=== PATIENT | male | born 1985 | race Caucasian/White ===

== ENCOUNTER 2017-04-14 19:57 | Emergency (ER) | payer SELFPAY ==
--- NOTE | 2017-04-14 21:04 | DIAGNOSTIC IMAGING REPORT ---
PROCEDURE: XR CHEST 2 VIEW INDICATION: SHORTNESS OF BREATH TECHNIQUE: PA and lateral views. COMPARISON: None. FINDINGS: Lungs are clear. Heart and mediastinum are normal. Thorax is normal. IMPRESSION: 1. Negative chest.
--- NOTE | 2017-04-14 22:02 | ED CLINICAL REPORT ---
Clinical Report - Physicians/Mid Levels [facility] [address] [place] [address] 04/14/2017 19:59 Patient: ADIS AREVALO Time Seen: 20:50. Arrived- By private vehicle. Historian- patient. HISTORY OF PRESENT ILLNESS Location of injuries- lower back. Chief Complaint: Injury to BACK. The injury occurred yesterday. (The patient unloaded a truck lifting multiple large boxes and kegs weighing up to 50 pounds each). ( He has pain that starts in his "tailbone " and that radiates up his back and down his L leg. He says that the pain becomes severe enough that it takes his "breath away." He denies any numbness or weakness of his legs. He denies incontinence for stool or urine.). Occurred at work. The patient complains of severe pain. REVIEW OF SYSTEMS No chills, fever, sweats, calf pain or chest pain. No cough, pedal edema, palpitations, abdominal pain or constipation. No diarrhea, nausea, vomiting or urinary problems. All systems otherwise negative, except as recorded above. PAST HISTORY Medications: None. Allergies: None. SOCIAL HISTORY Light tobacco smoker (cigarette)- less than 1/2 a pack per day. Occasional alcohol use. FAMILY HISTORY His father has severe degenerative disc disease. ADDITIONAL NOTES The nursing notes have been reviewed. PHYSICAL EXAM Vital Signs: 04/14/2017 20:38 BP: 118/83. HR: 52. RR: 18. O2 saturation: 100%. Temp: 98.8 F. Pain level now: 08/10. Have been reviewed. Appearance: Alert. Appears to be in pain. Eyes: Pupils equal, round and reactive to light. ENT: No dental injury. Pharynx normal. Neck: Painless ROM. CVS: Heart sounds normal. Respiratory: Breath sounds normal. Abdomen: No visible injury. Back: Moderate muscle spasm in the lumbar spine region. Severely limited ROM in the back- in the lumbar spine: decreased flexion, extension, right lateral bending, left lateral bending and rotation to the right and left. Skin: Skin warm and dry. Normal skin color. Normal skin turgor. Extremities: Normal inspection. Pelvis stable. Extremities atraumatic. LABS, X-RAYS, AND EKG X-Rays: T-Spine series negative. Chest X-ray negative. The X-rays were independently viewed by me. LS-Spine X-rays: (L5 - S1 disc space narrowing). The X-rays were independently viewed by me. PROGRESS AND PROCEDURES Course of Care: Patient is stable. Patient/family counseled. Old medical records ordered. Old records unavailable. Disposition: Discharged. Condition: stable. CLINICAL IMPRESSION Lumbar back pain associated with degenerative joint disease of the lumbar spine. INSTRUCTIONS Apply ice for 20 minutes followed by heat four times a day until better. Don't apply ice directly to skin and don't use while asleep. No driving or operating machinery while taking medication. Sedative medication was given during your visit. No bending or stooping or lifting greater than 5 lbs until released. No sports until well. Do not work for four days. (do not take both hydrocodone with acetaminophen and Flexeril at the same time as discussed. Wait at least 8 hours after the last dose of either before taking another of either of them.). Warnings: COMPLICATIONS: Complications from this condition include: injury to a nerve. Future problems may include loss of function and pain. GENERAL WARNINGS: Return or contact your physician immediately if your condition worsens or changes unexpectedly, if not improving as expected, or if other problems arise. Prescription Medications: Hydrocodone/APAP 5mg/325mg: take 1 to 2 orally every 6 hours as needed for pain. Dispense fifteen (15). No refills. Ibuprofen 600mg tablets: take 1 tablet orally every 8 hours as needed for pain. Dispense thirty (30). No refills. Flexeril 10 mg: Take 1 orally every 8 hours as needed for muscle spasm. Dispense twenty (20). No refills. Substitution is permissible. Understanding of the discharge instructions verbalized by patient. Follow-up with: [facility], , , [address], [facility], [address] Follow up in four days if not better. (Electronically signed by Sincere Manning MD 04/15/2017 10:10)
--- NOTE | 2017-04-14 22:02 | ED CLINICAL REPORT ---
Clinical Report - Physicians/Mid Levels [facility] [address] [place] [address] 04/14/2017 19:59 Patient: ADIS AREVALO Time Seen: 20:50. Arrived- By private vehicle. Historian- patient. HISTORY OF PRESENT ILLNESS Location of injuries- lower back. Chief Complaint: Injury to BACK. The injury occurred yesterday. (The patient unloaded a truck lifting multiple large boxes and kegs weighing up to 50 pounds each). ( He has pain that starts in his "tailbone " and that radiates up his back and down his L leg. He says that the pain becomes severe enough that it takes his "breath away." He denies any numbness or weakness of his legs. He denies incontinence for stool or urine.). Occurred at work. The patient complains of severe pain. REVIEW OF SYSTEMS No chills, fever, sweats, calf pain or chest pain. No cough, pedal edema, palpitations, abdominal pain or constipation. No diarrhea, nausea, vomiting or urinary problems. All systems otherwise negative, except as recorded above. PAST HISTORY Medications: None. Allergies: None. SOCIAL HISTORY Light tobacco smoker (cigarette)- less than 1/2 a pack per day. Occasional alcohol use. FAMILY HISTORY His father has severe degenerative disc disease. ADDITIONAL NOTES The nursing notes have been reviewed. PHYSICAL EXAM Vital Signs: 04/14/2017 20:38 BP: 118/83. HR: 52. RR: 18. O2 saturation: 100%. Temp: 98.8 F. Pain level now: 08/10. Have been reviewed. Appearance: Alert. Appears to be in pain. Eyes: Pupils equal, round and reactive to light. ENT: No dental injury. Pharynx normal. Neck: Painless ROM. CVS: Heart sounds normal. Respiratory: Breath sounds normal. Abdomen: No visible injury. Back: Moderate muscle spasm in the lumbar spine region. Severely limited ROM in the back- in the lumbar spine: decreased flexion, extension, right lateral bending, left lateral bending and rotation to the right and left. Skin: Skin warm and dry. Normal skin color. Normal skin turgor. Extremities: Normal inspection. Pelvis stable. Extremities atraumatic. LABS, X-RAYS, AND EKG X-Rays: T-Spine series negative. Chest X-ray negative. The X-rays were independently viewed by me. LS-Spine X-rays: (L5 - S1 disc space narrowing). The X-rays were independently viewed by me. PROGRESS AND PROCEDURES Course of Care: Patient is stable. Patient/family counseled. Old medical records ordered. Old records unavailable. Disposition: Discharged. Condition: stable. CLINICAL IMPRESSION Lumbar back pain associated with degenerative joint disease of the lumbar spine. INSTRUCTIONS Apply ice for 20 minutes followed by heat four times a day until better. Don't apply ice directly to skin and don't use while asleep. No driving or operating machinery while taking medication. Sedative medication was given during your visit. No bending or stooping or lifting greater than 5 lbs until released. No sports until well. Do not work for four days. (do not take both hydrocodone with acetaminophen and Flexeril at the same time as discussed. Wait at least 8 hours after the last dose of either before taking another of either of them.). Warnings: COMPLICATIONS: Complications from this condition include: injury to a nerve. Future problems may include loss of function and pain. GENERAL WARNINGS: Return or contact your physician immediately if your condition worsens or changes unexpectedly, if not improving as expected, or if other problems arise. Prescription Medications: Hydrocodone/APAP 5mg/325mg: take 1 to 2 orally every 6 hours as needed for pain. Dispense fifteen (15). No refills. Ibuprofen 600mg tablets: take 1 tablet orally every 8 hours as needed for pain. Dispense thirty (30). No refills. Flexeril 10 mg: Take 1 orally every 8 hours as needed for muscle spasm. Dispense twenty (20). No refills. Substitution is permissible. Understanding of the discharge instructions verbalized by patient. Follow-up with: [facility], , , [address], [facility], [address] Follow up in four days if not better. (Electronically signed by Sincere Manning MD 04/15/2017 10:10)
--- NOTE | 2017-04-14 22:02 | ED ORDER SUMMARY ---
..... Patient: ADIS AREVALO OrderSheet [facility] VisitID: [id number] [place] [address] 32y, M Registration Date/Time: 04/14/2017 ORDER SHEET Weight: 99.7 kg (stated) Allergies: None GENERAL ORDERS: Chest 2V Urgent (20:50 04/14/2017 Ashish SEGURA) (Ack 20:52 CHagerty ER Cyber Security Architect) (21:19 MCampbell) Thoracic Spine 3V Urgent (20:51 04/14/2017 Ashish SEGURA) (Ack 20:52 Venessa ER Cyber Security Architect) (21:19 MCampbell) Lumbar Spine 2 or 3V Urgent (20:51 04/14/2017 Ashish SEGURA) (Ack 20:52 Venessa ER Cyber Security Architect) (21:19 MCampbell) Sacrum and Coccyx Urgent (21:32 04/14/2017 Ashish SEGURA) (Ack 21:45 CHagchanel ER Cyber Security Architect) (21:46 Ashish SEGURA) (Cancelled: Other21:46 Ashish SEGURA) MEDICATION ORDERS: Hydrocodone-APAP PO 7.5/325 mg (NOW, HIGH ALERT MEDICATION) (22:01 04/14/2017 Ashish SEGURA) (Ack 22:09 RCollier R.N.) (22:22 Justyn R.N.) IV FLUIDS: ORDER SHEET NOTES: [Electronically signed by Darlene Ruvalcaba R.N. (23:11 04/14/2017)] [Electronically signed by Sincere Manning MD (10:10 04/15/2017)] [Electronically locked/signed by Darlene Ruvalcaba R.N. (23:11 04/14/2017)]
--- NOTE | 2017-04-14 22:02 | ED ORDER SUMMARY ---
..... Patient: ADIS AREVALO OrderSheet [facility] VisitID: [id number] [place] [address] 32y, M Registration Date/Time: 04/14/2017 ORDER SHEET Weight: 99.7 kg (stated) Allergies: None GENERAL ORDERS: Chest 2V Urgent (20:50 04/14/2017 Ashish SEGURA) (Ack 20:52 CHagerty ER Financial Compliance Examiner) (21:19 MCampbell) Thoracic Spine 3V Urgent (20:51 04/14/2017 Ashish SEGURA) (Ack 20:52 Venessa ER Financial Compliance Examiner) (21:19 MCampbell) Lumbar Spine 2 or 3V Urgent (20:51 04/14/2017 Ashish SEGURA) (Ack 20:52 Venessa ER Financial Compliance Examiner) (21:19 MCampbell) Sacrum and Coccyx Urgent (21:32 04/14/2017 Ashish SEGURA) (Ack 21:45 CHagchanel ER Financial Compliance Examiner) (21:46 Ashish SEGURA) (Cancelled: Other21:46 Ashish SEGURA) MEDICATION ORDERS: Hydrocodone-APAP PO 7.5/325 mg (NOW, HIGH ALERT MEDICATION) (22:01 04/14/2017 Ashish SEGURA) (Ack 22:09 RCollier R.N.) (22:22 Justyn R.N.) IV FLUIDS: ORDER SHEET NOTES: [Electronically signed by Darlene Ruvalcaba R.N. (23:11 04/14/2017)] [Electronically signed by Sincere Manning MD (10:10 04/15/2017)] [Electronically locked/signed by Darlene Ruvalcaba R.N. (23:11 04/14/2017)]
--- NOTE | 2017-04-14 22:02 | ED NURSING NOTES ---
Clinical Report - Nurses [facility] [address] [place] [address] 04/14/2017 19:59 Patient: ADIS AREVALO TRIAGE Triage time 20:39. Acuity: LEVEL 4. Chief Complaint: SHORTNESS OF BREATH and DIFFICULTY BREATHING. 20:39 04/14/17. 20:39 04/14/17. Alert. ( Pt loaded a truck yesterday, pt states he possibly injured his back with pain radiating up his back to his lungs,). --20:42 Raúl Valdez R.N. 20:38 04/14/17. BP: 118/83. HR: 52. RR: 18. O2 saturation: 100% on room air. Temp: 98.8 F (oral). Pain level now: 08/10. --20:42 Raúl Valdez R.N. Weight: 99.7 kg stated. Height/Length: 81 inches Per Patient. BMI: 23.6. --20:39 Raúl Valdez R.N. Medications None. --20:40 Raúl Valdez R.N. Medication/allergy information source: the patient. --20:42 Raúl Valdez R.N. Allergies None. --20:40 Raúl Valdez R.N. History Arrived by private vehicle. Historian: patient. Accompanied by family. Primary physician (NONE). 20:39 04/14/17. This started yesterday. Treatment WIRE DROPPER: None. PAST MEDICAL HX: Immunizations: up-to-date. SOCIAL HX: Current every day light tobacco smoker (cigarette)- less than 1/2 a pack per day. Occasional alcohol use. No drug use. No infectious disease exposure. ABUSE ASSESSMENT: No report of abuse. FALL RISK ASSESSMENT: Fall risk assessment completed. No fall risk identified. NUTRITIONAL RISK ASSESSMENT: The nutritional risk assessment revealed no deficiencies. FUNCTIONAL ASSESSMENT: Functional assessment: no impairments noted. LEARNING NEEDS ASSESSMENT: The learning needs assessment revealed no barriers. SKIN INTEGRITY ASSESSMENT: Skin integrity risk assessment completed. No skin integrity risk identified. --20:42 Raúl Valdez R.N. Assessment 20:39 04/14/17. --20:42 Raúl Valdez R.N. Interventions 20:39 04/14/17. 20:39 04/14/17. ID and allergy band on patient. To treatment room. --20:42 Raúl Valdez R.N. PHYSICAL ASSESSMENT 20:42 04/14/17. Ambulatory to room. GENERAL / NEURO / PSYCH: Alert. Oriented X 4. Appears in pain. RESPIRATORY: No respiratory distress. CVS: Capillary refill less than 2 seconds. SKIN: Skin is warm and dry. --20:42 Raúl Valdez R.N. NURSING PROGRESS NOTES 20:43 04/14/17. The plan of care for this patient has been created. Patient gowned. Head of bed elevated. Reassurance given. Two patient identifiers checked. Call light placed in reach. Side rails up x 2. Bed placed in lowest position. Brakes of bed on. --20:43 Raúl Valdez R.N. 20:43 04/14/17. Patient ready for evaluation- chart flagged and notification provided. --20:43 Raúl Valdez R.N. 21:31 04/14/17. Care transferred and report given. --21:31 Raúl Valdez R.N. Care transferred and report received. --21:34 Darlene Ruvalcaba R.N. ( pt calm, resting quietly. Waiting for xrays to be done. Jeans removed, warm blanket provided.). --21:37 Darlene Ruvalcaba R.N. 22:18 04/14/2017 Hydrocodone-APAP (Hydrocodone-Acetaminophen) PO 5/325 mg Tablets 2 tab given. Allergies verified, confirmed 5 rights and sedative warning given to the patient. (10mg given per verbal from MD). --22:22 Darlene Ruvalcaba R.N. DISPOSITION / DISCHARGE 22:21. Condition at departure: stable. No learning barriers present. Discharge instructions provided and reviewed with the patient. Reviewed medication(s) side effects, precautions, dosing and course information. Prescription(s) given to the patient. Patient verbalized understanding. Written instructions provided in Croatian. The patient was discharged home and accompanied by spouse. He left the Emergency Department ambulatory and via private vehicle. Spouse driving. --23:11 Darlene Ruvalcaba R.N. 22:20 04/14/17. BP: 122/73. HR: 56. RR: 15. O2 saturation: 100% on room air. Temp: deferred. Landin-Zamora pain scale: 4/10. --23:11 Darlene Ruvalcaba R.N. Locked/Released at 04/14/2017 23:11 by Darlene Ruvalcaba R.N.
--- NOTE | 2017-04-14 22:02 | ED NURSING NOTES ---
Clinical Report - Nurses [facility] [address] [place] [address] 04/14/2017 19:59 Patient: ADIS AREVALO TRIAGE Triage time 20:39. Acuity: LEVEL 4. Chief Complaint: SHORTNESS OF BREATH and DIFFICULTY BREATHING. 20:39 04/14/17. 20:39 04/14/17. Alert. ( Pt loaded a truck yesterday, pt states he possibly injured his back with pain radiating up his back to his lungs,). --20:42 Raúl Valdez R.N. 20:38 04/14/17. BP: 118/83. HR: 52. RR: 18. O2 saturation: 100% on room air. Temp: 98.8 F (oral). Pain level now: 08/10. --20:42 Raúl Valdez R.N. Weight: 99.7 kg stated. Height/Length: 81 inches Per Patient. BMI: 23.6. --20:39 Raúl Valdez R.N. Medications None. --20:40 Raúl Valdez R.N. Medication/allergy information source: the patient. --20:42 Raúl Valdez R.N. Allergies None. --20:40 Raúl Valdez R.N. History Arrived by private vehicle. Historian: patient. Accompanied by family. Primary physician (NONE). 20:39 04/14/17. This started yesterday. Treatment SWITCH INSPECTOR: None. PAST MEDICAL HX: Immunizations: up-to-date. SOCIAL HX: Current every day light tobacco smoker (cigarette)- less than 1/2 a pack per day. Occasional alcohol use. No drug use. No infectious disease exposure. ABUSE ASSESSMENT: No report of abuse. FALL RISK ASSESSMENT: Fall risk assessment completed. No fall risk identified. NUTRITIONAL RISK ASSESSMENT: The nutritional risk assessment revealed no deficiencies. FUNCTIONAL ASSESSMENT: Functional assessment: no impairments noted. LEARNING NEEDS ASSESSMENT: The learning needs assessment revealed no barriers. SKIN INTEGRITY ASSESSMENT: Skin integrity risk assessment completed. No skin integrity risk identified. --20:42 Raúl Valdez R.N. Assessment 20:39 04/14/17. --20:42 Raúl Valdez R.N. Interventions 20:39 04/14/17. 20:39 04/14/17. ID and allergy band on patient. To treatment room. --20:42 Raúl Valdez R.N. PHYSICAL ASSESSMENT 20:42 04/14/17. Ambulatory to room. GENERAL / NEURO / PSYCH: Alert. Oriented X 4. Appears in pain. RESPIRATORY: No respiratory distress. CVS: Capillary refill less than 2 seconds. SKIN: Skin is warm and dry. --20:42 Raúl Valdez R.N. NURSING PROGRESS NOTES 20:43 04/14/17. The plan of care for this patient has been created. Patient gowned. Head of bed elevated. Reassurance given. Two patient identifiers checked. Call light placed in reach. Side rails up x 2. Bed placed in lowest position. Brakes of bed on. --20:43 Raúl Valdez R.N. 20:43 04/14/17. Patient ready for evaluation- chart flagged and notification provided. --20:43 Raúl Valdez R.N. 21:31 04/14/17. Care transferred and report given. --21:31 Raúl Valdez R.N. Care transferred and report received. --21:34 Darlene Ruvalcaba R.N. ( pt calm, resting quietly. Waiting for xrays to be done. Jeans removed, warm blanket provided.). --21:37 Darlene Ruvalcaba R.N. 22:18 04/14/2017 Hydrocodone-APAP (Hydrocodone-Acetaminophen) PO 5/325 mg Tablets 2 tab given. Allergies verified, confirmed 5 rights and sedative warning given to the patient. (10mg given per verbal from MD). --22:22 Darlene Ruvalcaba R.N. DISPOSITION / DISCHARGE 22:21. Condition at departure: stable. No learning barriers present. Discharge instructions provided and reviewed with the patient. Reviewed medication(s) side effects, precautions, dosing and course information. Prescription(s) given to the patient. Patient verbalized understanding. Written instructions provided in Albanian. The patient was discharged home and accompanied by spouse. He left the Emergency Department ambulatory and via private vehicle. Spouse driving. --23:11 Darlene Ruvalcaba R.N. 22:20 04/14/17. BP: 122/73. HR: 56. RR: 15. O2 saturation: 100% on room air. Temp: deferred. Landin-Zamora pain scale: 4/10. --23:11 Darlene Ruvalcaba R.N. Locked/Released at 04/14/2017 23:11 by Darlene Ruvalcaba R.N.
--- NOTE | 2017-04-14 22:49 | DIAGNOSTIC IMAGING REPORT ---
PROCEDURE: XR LUMBAR SPINE 2 OR 3 VIEWS INDICATION: LOWER BACK PAIN TECHNIQUE: Three views. COMPARISON: None. FINDINGS: Osseous structures and disc spaces are normal. No evidence of an acute process or fracture. IMPRESSION: 1. Negative lumbar spine.
--- NOTE | 2017-04-14 22:50 | DIAGNOSTIC IMAGING REPORT ---
PROCEDURE: XR THORACIC SPINE 3 VIEWS INDICATION: MID BACK PAIN TECHNIQUE: Three views. COMPARISON: None. FINDINGS: Osseous structures and disc spaces are normal. No evidence of an acute process or fracture. IMPRESSION: 1. Negative thoracic spine.
--- NOTE | 2017-04-15 10:10 | ED MED RECONCILIATION SUMMARY ---
Patient: ADIS AREVALO Medication Reconciliation Report [facility] VisitID: [id number] [address] [place] [address] 32y, M Registration Date/Time: 04/14/2017 Weight: 99.7 kg Height/Length: 81 in. BMI: 23.6 ALLERGIES: None The patient's Home Medications are listed below: NONE. The source(s) of the original Home Medication information: patient The following Medications were given to the patient in the Emergency Department: Hydrocodone-APAP [PO] PO 2 tab, administered: 04/14/2017 10:18:00 PM The following Medications were prescribed to the patient: Hydrocodone/APAP 5mg/325mg: take 1 to 2 orally every 6 hours as needed for pain. Dispense fifteen (15). No refills. -- Sincere Manning MD Ibuprofen 600mg tablets: take 1 tablet orally every 8 hours as needed for pain. Dispense thirty (30). No refills. -- Sincere Manning MD Flexeril 10 mg: Take 1 orally every 8 hours as needed for muscle spasm. Dispense twenty (20). No refills. Substitution is permissible. -- Sincere Manning MD
--- NOTE | 2017-04-15 10:10 | ED DISCHARGE INSTRUCTIONS ---
Patient: ADIS AREVALO General Instructions [facility] VisitID: [id number] [address] 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 INSTRUCTIONS Apply ice for 20 minutes followed by heat four times a day until better. Don't apply ice directly to skin and don't use while asleep. No driving or operating machinery while taking medication. Sedative medication was given during your visit. No bending or stooping or lifting greater than 5 lbs until released. No sports until well. Do not work for four days. (do not take both hydrocodone with acetaminophen and Flexeril at the same time as discussed. Wait at least 8 hours after the last dose of either before taking another of either of them.). Warnings: COMPLICATIONS: Complications from this condition include: injury to a nerve. Future problems may include loss of function and pain. GENERAL WARNINGS: Return or contact your physician immediately if your condition worsens or changes unexpectedly, if not improving as expected, or if other problems arise. Prescription Medications: Hydrocodone/APAP 5mg/325mg: take 1 to 2 orally every 6 hours as needed for pain. Dispense fifteen (15). No refills. Ibuprofen 600mg tablets: take 1 tablet orally every 8 hours as needed for pain. Dispense thirty (30). No refills. Flexeril 10 mg: Take 1 orally every 8 hours as needed for muscle spasm. Dispense twenty (20). No refills. Substitution is permissible. Understanding of the discharge instructions verbalized by patient. Follow-up with: [facility], , , [address], , [place], [id number] Follow up in four days if not better. ADDITIONAL INFORMATION Sciatica Sciatica ("Lumbar Radiculopathy") causes a pain that spreads from the lower back down into the buttock, hip and leg. Sometimes leg pain can occur without any back pain. Sciatica is due to irritation or pressure on a spinal nerve as it comes out of the spinal canal. This is most often due to a bulge or rupture of a nearby spinal disk (the cartilage cushion between each spinal bone), which presses on a nearby nerve. Other causes include spinal stenosis (narrowing of the spinal canal) and spasm of the pyriform muscle (a muscle in the buttocks that the sciatic nerve passes through). Sciatica may begin after a sudden twisting/bending force (such as in a car accident), or sometimes after a simple awkward movement. In either case, muscle spasm is commonly present and contributes to the pain. The diagnosis of sciatica is made from the symptoms and physical exam. Unless you had a physical injury (such as a car accident or fall), X-rays are usually not ordered for the initial evaluation of sciatica because the nerves and disks cannot be seen on an x-ray. If signs of a compressed nerve are present (for example, loss of tendon reflex or strength in the leg), an MRI (magnetic resonance imaging) scan will need to be scheduled as an outpatient. Most sciatica (80-90%) gets better with medicine, exercise, physical therapy. If symptoms continue after at least three months of medical treatment, surgery may be considered. Home Care: You may need to stay in bed the first few days. But, as soon as possible, begin sitting or walking to avoid problems with prolonged bed rest. When in bed, try to find a position of comfort. A firm mattress is best. Try lying flat on your back with pillows under your knees. You can also try lying on your side with your knees bent up towards your chest and a pillow between your knees. Avoid prolonged sitting. This puts more stress on the lower back than standing or walking. Some persons find relief with heat (hot shower, hot bath or heating pad) and massage, while others prefer cold packs (crushed or cubed ice in a plastic bag, wrapped in a towel). Try both and use the method that feels best for 20 minutes several times a day. You may use acetaminophen (Tylenol) or ibuprofen (Motrin, Advil) to control pain, unless another pain medicine was prescribed. [ NOTE: If you have chronic liver or kidney disease or ever had a stomach ulcer or GI bleeding, talk with your doctor before using these medicines.] Be aware of safe lifting methods and do not lift anything over 15 pounds until all the pain is gone. Follow Up with your doctor or this facility if your symptoms do not start to improve after one week. Physical therapy or further testing may be needed. [NOTE: If X-rays were taken, they will be reviewed by a radiologist. You will be notified of any new findings that may affect your care.] Get Prompt Medical Attention if any of the following occur: Pain becomes worse, not controlled by the prescribed medicine Weakness or numbness in one or both legs Numbness in the groin, genital area Loss of bowel or bladder control Degenerative Disk Disease Spinal disks are gel-filled cushions between the bones of the spine (vertebrae). The disks act like shock absorbers. Over time, the disks may break down. This disorder is called degenerative disk disease (DDD). DDD can affect the neck or back. It is one of the most common causes of low back pain. It is the leading cause of disability in people under age 45 in the [place]. The pain usually remains localized to the lower back or neck. Muscle spasm is often present and adds to the pain. Disk degeneration is a natural part of aging, although it does not cause pain in most persons. It may also occur as a result of repeated minor injuries due to daily activities, sports, or accidents. It may lead to osteoarthritis of the spine. Back pain related to disk disease may come and go or become chronic and last for months or years. If the disk bulges or ruptures (also called slipped disk or herniated disk), it can put pressure on a nearby spinal nerve and cause neck or back pain that spreads down one arm or leg. X-rays or MRI (magnetic resonance imaging) scan may aid in the diagnosis. For acute pain, treatment consists of anti-inflammatory drugs, muscle relaxants, rest, ice, or heat. Narcotic pain medicines may be needed for short-term treatment of sudden worsening of pain. Due to their addictive potential, narcotics are not advised for long-term pain management. Other types of medicines are preferred. Surgery is usually not used to treat this condition unless there is a complication (such as nerve root compression). Home Care: FOR NECK PAIN: Use a comfortable pillow that supports the head and keeps the spine in a neutral position. The head should not be tilted forward or backward. FOR BACK PAIN: Avoid prolonged sitting. This puts more stress on the lower back than standing or walking. Establishing a regular exercise program to strengthen the supporting muscles of the spine will make it easier to live with DDD. During the first2 days after a flare-up of your pain, apply anice pack to the painful area for 20 minutes every 2-4 hours. This will reduce swelling and pain.Heat (hot shower, hot bath, or heating pad) works well for muscle spasm. You can start with ice, then switch to heat after2 days. Some patients feel best alternating ice and heat treatments. Use the method that feelsbest to you. You may use acetaminophen (Tylenol) or ibuprofen (Motrin, Advil) to control pain, unless another pain medicine was prescribed. [NOTE: If you have chronic liver or kidney disease or ever had a stomach ulcer or GI bleeding, talk with your doctor before using these medicines.] Follow Up with your physician, or as directed by our staff. [NOTE: If x-rays, a CT scan or an MRI scan were taken, they will be reviewed by a radiologist. You will be notified of any new findings that may affect your care.] Return Promptly or contact your doctor if any of the following occur: Increasing back pain New weakness, numbness, or pain in one or both arms or legs Foot drop (foot drags when you walk) Loss of bowel or bladder control Numbness or tingling in the buttock or groin area Unexplained fever over 100.4F (38.0C) Hydrocodone Bitartrate, Acetaminophen Oral tablet What is this medicine? ACETAMINOPHEN; HYDROCODONE (a set a OREN loli fen; israel droe KOE done) is a pain reliever. It is used to treat mild to moderate pain. How should I use this medicine? Take this medicine by mouth. Swallow it with a full glass of water. Follow the directions on the prescription label. If the medicine upsets your stomach, take the medicine with food or milk. Do not take more than you are told to take. Talk to your meteorological observer regarding the use of this medicine in children. This medicine is not approved for use in children. What side effects may I notice from receiving this medicine? Side effects that you should report to your doctor or health direct care supervisor as soon as possible: allergic reactions like skin rash, itching or hives, swelling of the face, lips, or tongue breathing problems confusion feeling faint or lightheaded, falls stomach pain yellowing of the eyes or skin Side effects that usually do not require medical attention (report to your doctor or health direct care supervisor if they continue or are bothersome): nausea, vomiting stomach upset What may interact with this medicine? alcohol antihistamines isoniazid medicines for depression, anxiety, or psychotic disturbances medicines for sleep muscle relaxants naltrexone narcotic medicines (opiates) for pain phenobarbital ritonavir tramadol What if I miss a dose? If you miss a dose, take it as soon as you can. If it is almost time for your next dose, take only that dose. Do not take double or extra doses. Where should I keep my medicine? Keep out of the reach of children. This medicine can be abused. Keep your medicine in a safe place to protect it from theft. Do not share this medicine with anyone. Selling or giving away this medicine is dangerous and against the law. Store at room temperature between 15 and 30 degrees C (59 and 86 degrees F). Protect from light. Keep container tightly closed. Throw away any unused medicine after the expiration date. Discard unused medicine and used packaging carefully. Pets and children can be harmed if they find used or lost packages. What should I tell my health care provider before I take this medicine? They need to know if you have any of these conditions: brain tumor Crohn's disease, inflammatory bowel disease, or ulcerative colitis drink more than 3 alcohol-containing drinks per day drug abuse or addiction head injury heart or circulation problems kidney disease or problems going to the bathroom liver disease lung disease, asthma, or breathing problems an unusual or allergic reaction to acetaminophen, hydrocodone, other opioid analgesics, other medicines, foods, dyes, or preservatives or trying to get breast-feeding What should I watch for while using this medicine? Tell your doctor or health direct care supervisor if your pain does not go away, if it gets worse, or if you have new or a different type of pain. You may develop tolerance to the medicine. Tolerance means that you will need a higher dose of the medicine for pain relief. Tolerance is normal and is expected if you take the medicine for a long time. Do not suddenly stop taking your medicine because you may develop a severe reaction. Your body becomes used to the medicine. This does NOT mean you are addicted. Addiction is a behavior related to getting and using a drug for a non-medical reason. If you have pain, you have a medical reason to take pain medicine. Your doctor will tell you how much medicine to take. If your doctor wants you to stop the medicine, the dose will be slowly lowered over time to avoid any side effects. You may get drowsy or dizzy when you first start taking the medicine or change doses. Do not drive, use machinery, or do anything that may be dangerous until you know how the medicine affects you. Stand or sit up slowly. There are different types of narcotic medicines (opiates) for pain. If you take more than one type at the same time, you may have more side effects. Give your health care provider a list of all medicines you use. Your doctor will tell you how much medicine to take. Do not take more medicine than directed. Call emergency for help if you have problems breathing. The medicine will cause constipation. Try to have a bowel movement at least every 2 to 3 days. If you do not have a bowel movement for 3 days, call your doctor or health direct care supervisor. Too much acetaminophen can be very dangerous. Do not take Tylenol (acetaminophen) or medicines that contain acetaminophen with this medicine. Many non-prescription medicines contain acetaminophen. Always read the labels carefully. Ibuprofen Oral tablet What is this medicine? IBUPROFEN (eye BYOO proe fen) is a non-steroidal anti-inflammatory drug (NSAID). It is used for dental pain, fever, headaches or migraines, osteoarthritis, rheumatoid arthritis, or painful monthly periods. It can also relieve minor aches and pains caused by a cold, flu, or sore throat. How should I use this medicine? Take this medicine by mouth with a glass of water. Follow the directions on the prescription label. Take this medicine with food if your stomach gets upset. Try to not lie down for at least 10 minutes after you take the medicine. Take your medicine at regular intervals. Do not take your medicine more often than directed. A special MedGuide will be given to you by the pharmacist with each prescription and refill. Be sure to read this information carefully each time. Talk to your meteorological observer regarding the use of this medicine in children. Special care may be needed. What side effects may I notice from receiving this medicine? Side effects that you should report to your doctor or health direct care supervisor as soon as possible: allergic reactions like skin rash, itching or hives, swelling of the face, lips, or tongue black or bloody stools, blood in the urine or in vomit breathing problems changes in vision chest pain general ill feeling or flu-like symptoms nausea or vomiting redness, blistering, peeling or loosening of the skin, including inside the mouth slurred speech or weakness on one side of the body stomach pain unexplained weight gain or swelling unusually weak or tired yellowing of eyes or skin Side effects that usually do not require medical attention (report to your doctor or health direct care supervisor if they continue or are bothersome): constipation or diarrhea dizziness gas or heartburn stomach upset What may interact with this medicine? Do not take this medicine with any of the following medications: cidofovir ketorolac methotrexate pemetrexed This medicine may also interact with the following medications: alcohol aspirin diuretics lithium other drugs for inflammation like prednisone warfarin What if I miss a dose? If you miss a dose, take it as soon as you can. If it is almost time for your next dose, take only that dose. Do not take double or extra doses. Where should I keep my medicine? Keep out of the reach of children. Store at room temperature between 15 and 30 degrees C (59 and 86 degrees F). Keep container tightly closed. Throw away any unused medicine after the expiration date. What should I tell my health care provider before I take this medicine? They need to know if you have any of these conditions: asthma cigarette smoker drink more than 3 alcohol containing drinks a day heart disease or circulation problems such as heart failure or leg edema (fluid retention) high blood pressure kidney disease liver disease stomach bleeding or ulcers an unusual or allergic reaction to ibuprofen, aspirin, other NSAIDS, other medicines, foods, dyes, or preservatives or trying to get breast-feeding What should I watch for while using this medicine? Tell your doctor or healthcare professional if your symptoms do not start to get better or if they get worse. This medicine does not prevent heart attack or stroke. In fact, this medicine may increase the chance of a heart attack or stroke. The chance may increase with longer use of this medicine and in people who have heart disease. If you take aspirin to prevent heart attack or stroke, talk with your doctor or health direct care supervisor. Do not take other medicines that contain aspirin, ibuprofen, or naproxen with this medicine. Side effects such as stomach upset, nausea, or ulcers may be more likely to occur. Many medicines available without a prescription should not be taken with this medicine. This medicine can cause ulcers and bleeding in the stomach and intestines at any time during treatment. Ulcers and bleeding can happen without warning symptoms and can cause . To reduce your risk, do not smoke cigarettes or drink alcohol while you are taking this medicine. You may get drowsy or dizzy. Do not drive, use machinery, or do anything that needs mental alertness until you know how this medicine affects you. Do not stand or sit up quickly, especially if you are an older patient. This reduces the risk of dizzy or fainting spells. This medicine can cause you to bleed more easily. Try to avoid damage to your teeth and gums when you brush or floss your teeth. Cyclobenzaprine Hydrochloride Oral tablet What is this medicine? CYCLOBENZAPRINE (sonye ilene JOSUE sol de pazen) is a muscle relaxer. It is used to treat muscle pain, spasms, and stiffness. How should I use this medicine? Take this medicine by mouth with a glass of water. Follow the directions on the prescription label. If this medicine upsets your stomach, take it with food or milk. Take your medicine at regular intervals. Do not take it more often than directed. Talk to your meteorological observer regarding the use of this medicine in children. Special care may be needed. What side effects may I notice from receiving this medicine? Side effects that you should report to your doctor or health direct care supervisor as soon as possible: allergic reactions like skin rash, itching or hives, swelling of the face, lips, or tongue chest pain fast heartbeat hallucinations seizures vomiting Side effects that usually do not require medical attention (report to your doctor or health direct care supervisor if they continue or are bothersome): headache What may interact with this medicine? Do not take this medicine with any of the following medications: cisapride droperidol flecainide grepafloxacin halofantrine levomethadyl MAOIs like Carbex, Eldepryl, Marplan, Nardil, and Parnate nilotinib pimozide probucol sertindole This medicine may also interact with the following medications: abarelix alcohol contrast dyes dolasetron guanethidine medicines for cancer medicines for depression, anxiety, or psychotic disturbances medicines to treat an irregular heartbeat medicines used for sleep or numbness during surgery or procedure methadone octreotide ondansetron palonosetron phenothiazines like chlorpromazine, mesoridazine, prochlorperazine, thioridazine some medicines for infection like alfuzosin, chloroquine, clarithromycin, levofloxacin, mefloquine, pentamidine, troleandomycin tramadol vardenafil What if I miss a dose? If you miss a dose, take it as soon as you can. If it is almost time for your next dose, take only that dose. Do not take double or extra doses. Where should I keep my medicine? Keep out of the reach of children. Store at room temperature between 15 and 30 degrees C (59 and 86 degrees F). Keep container tightly closed. Throw away any unused medicine after the expiration date. What should I tell my health care provider before I take this medicine? They need to know if you have any of these conditions: heart disease, irregular heartbeat, or previous heart attack liver disease thyroid problem an unusual or allergic reaction to cyclobenzaprine, tricyclic antidepressants, lactose, other medicines, foods, dyes, or preservatives or trying to get breast-feeding What should I watch for while using this medicine? Check with your doctor or health direct care supervisor if your condition does not improve within 1 to 3 weeks. You may get drowsy or dizzy when you first start taking the medicine or change doses. Do not drive, use machinery, or do anything that may be dangerous until you know how the medicine affects you. Stand or sit up slowly. Your mouth may get dry. Drinking water, chewing sugarless gum, or sucking on hard candy may help. You have been given the following additional information: Back Pain W/ Sciatica Degenerative Disk Disease Hydrocodone Bitartrate, Acetaminophen Oral tablet Ibuprofen Oral tablet Cyclobenzaprine Hydrochloride Oral tablet No driving or operating machinery while taking medication. Sedative medication was given during your visit. No bending or stooping or lifting greater than 5 lbs until released. No sports until well. Do not work for four days. (Electronically signed by Sincere Manning MD 04/15/2017 10:10)
--- NOTE | 2017-04-15 10:10 | ED MAR SUMMARY ---
..... Medication Administration Record [facility] [address] [place] [place] [address] Patient: ADIS AREVALO Visit ID: [id number] 32y, M Weight: 99.7 kg Height/Length: 81 in BMI: 23.6 ALLERGIES: None Given 22:18 04/14/2017 Darlene Ruvalcaba R.N. Medication Administered: HYDROCODONE-APAP [PO] (HYDROCODONE-ACETAMINOPHEN), Dose: 2 tab 5/325 mg Tablets PO. Medication Ordered: Hydrocodone-APAP PO 7.5/325 mg (NOW, HIGH ALERT MEDICATION).
--- NOTE | 2017-04-15 10:10 | ED MED RECONCILIATION SUMMARY ---
Patient: ADIS AREVALO Medication Reconciliation Report [facility] VisitID: [id number] [address] [place] [address] 32y, M Registration Date/Time: 04/14/2017 Weight: 99.7 kg Height/Length: 81 in. BMI: 23.6 ALLERGIES: None The patient's Home Medications are listed below: NONE. The source(s) of the original Home Medication information: patient The following Medications were given to the patient in the Emergency Department: Hydrocodone-APAP [PO] PO 2 tab, administered: 04/14/2017 10:18:00 PM The following Medications were prescribed to the patient: Hydrocodone/APAP 5mg/325mg: take 1 to 2 orally every 6 hours as needed for pain. Dispense fifteen (15). No refills. -- Sincere Manning MD Ibuprofen 600mg tablets: take 1 tablet orally every 8 hours as needed for pain. Dispense thirty (30). No refills. -- Sincere Manning MD Flexeril 10 mg: Take 1 orally every 8 hours as needed for muscle spasm. Dispense twenty (20). No refills. Substitution is permissible. -- Sincere Manning MD
--- NOTE | 2017-04-15 10:10 | ED MAR SUMMARY ---
..... Medication Administration Record [facility] [address] [place] [address] Patient: ADIS AREVALO Visit ID: [id number] 32y, M Weight: 99.7 kg Height/Length: 81 in BMI: 23.6 ALLERGIES: None Given 22:18 04/14/2017 Darlene Ruvalcaba R.N. Medication Administered: HYDROCODONE-APAP [PO] (HYDROCODONE-ACETAMINOPHEN), Dose: 2 tab 5/325 mg Tablets PO. Medication Ordered: Hydrocodone-APAP PO 7.5/325 mg (NOW, HIGH ALERT MEDICATION).
== END 2017-04-14 22:21 | disposition home or self-care (01) ==
LOC: ED SRH 19:57
DX: M47.896 Other spondylosis, lumbar region (principal); M54.5 Low back pain; X50.0XXA Overexertion from strenuous movement or load, initial encounter; Y93.89 Activity, other specified; Y92.89 Other specified places as the place of occurrence of the external cause; Y99.0 Civilian activity done for income or pay; F17.210 Nicotine dependence, cigarettes, uncomplicated

== ENCOUNTER 2017-05-17 17:37 | Outpatient (CLI) | payer OTHER ==
--- NOTE | 2017-05-17 18:57 | DIAGNOSTIC IMAGING REPORT ---
PROCEDURE: XR HAND 3 OR 4 VIEWS - RIGHT INDICATION: R HAND PAIN TECHNIQUE: Four views of the right hand. COMPARISON: None. FINDINGS: Normal mineralization. Cortical irregularity along the base of the fifth metacarpal at the carpometacarpal articulation, with slight impaction of the lateral aspect. There is moderate overlying soft tissue swelling. Bony alignment is normally maintained. No other fractures. No radiodense foreign bodies in the soft tissue. IMPRESSION: 1. Intra-articular, minimally displaced, slightly impacted fifth metacarpal base fracture.
== END 2017-05-17 23:00 ==
LOC: XR SRH 17:37
DX: S62.316A Displaced fracture of base of fifth metacarpal bone, right hand, initial encounter for closed fracture (principal)